=== PATIENT | male | born 1995 | race Caucasian/White ===

== ENCOUNTER 2021-04-18 15:37 | Emergency (ER) | payer OTHER ==
[2021-04-18] MEDS ORDERED: Sodium Chloride 0.9% 2.5 ML Syringe FLUSH PRN (16:07)
[2021-04-18] MEDS ORDERED: Sodium Chloride 0.9% 10 ML Syringe FLUSH PRN (16:07)
[2021-04-18] MEDS ORDERED: Sodium Chloride 0.9% 1,000 ML IV ONE (16:46)
[2021-04-18] MEDS ORDERED: cefTRIAXone 1 GM in Premix Bag 1 BAG IV ONE (16:54)
[2021-04-18 17:08] LABS: BLOOD UREA NITROGEN,BUN 9 mg/dL (7.0-18.0); CARBON DIOXIDE,CO2 30.1 mmol/L (21.0-32.0); CHLORIDE,CL 99 mmol/L (98-107); GLUCOSE RANDOM 88 mg/dL (74-106); LIPASE 63 U/L (73-393); POTASSIUM,K 4.3 mmol/L (3.5-5.1); SODIUM,NA 138 mmol/L (136-148)
[2021-04-18 17:27] LABS: CORONAVIRUS COVID-19 NAA NEGATIVE (NEGATIVE); INFLUENZA A NAA NEGATIVE (NEGATIVE); INFLUENZA B NAA NEGATIVE (NEGATIVE)
--- NOTE | 2021-04-18 17:44 | EDM.PDOC ---
ED HPI GENERAL MEDICAL PROBLEM - General Chief Complaint: Back Pain or Injury Stated Complaint: KIDNEY STONES Time Seen by Provider: 04/18/21 15:45 Source of Information: Reports: Patient History Limitations: Reports: No Limitations - History of Present Illness INITIAL COMMENTS - FREE TEXT/NARRATIVE: HISTORY AND PHYSICAL: History of present illness: Patient is a 25-year-old male who presents emergency room today with concern of bilateral flank pain x7 days. Patient states that he went to the walk-in clinic 2 days ago and had a urine sample and was told that he has blood in his urine. They also told him that his liver functions were mildly elevated. Patient states starting yesterday, he did start developing cold-like symptoms with stuffy/runny nose and cough. Patient states that primarily, his flank pain has been coming in waves and today is slightly worse on the left than the right. Patient states that he has been a monogamous relationship with his and has been for several years. Patient denies any new sexual partners or anal intercourse patient denies any penile drainage or testicular tenderness. Patient states he has not taken anything for her symptoms and denies any other symptoms or concerns. Patient denies fever, chills, chest pain, shortness of breath, or cough. Denies headache, neck stiff ness, change in vision, syncope, or near syncope. Denies nausea, vomiting, diarrhea, constipation, or dysuria. Has not noted any blood in urine or stool. Patient has been eating and drinking appropriately. Review of systems: As per history of present illness and below otherwise all systems reviewed and negative. Past medical history: As per history of present illness and as reviewed below otherwise noncontributory. Surgical history: As per history of present illness and as reviewed below otherwise noncontributory. Social history: See social history for further information Family history: As per history of present illness and as reviewed below otherwise noncontributory. Physical exam: General: Patient is alert, oriented, and in no acute distress. Patient sitting comfortably on exam table. Vitals stable and reviewed by me. HEENT: Atraumatic, normocephalic, pupils equal and reactive bilaterally, negative for conjunctival pallor or scleral icterus, mucous membranes moist, throat clear, neck supple, nontender, trachea midline. No drooling or trismus noted. No meningeal signs. No hot potato voice noted. Lungs: Clear to auscultation, breath sounds equal bilaterally, chest nontender. Heart: S1S2, regular rate and rhythm without overt murmur Abdomen: Soft, nondistended, nontender. Negative for masses or hepatosplenomegaly. Positive for costovertebral tenderness bilaterally;worse on left than right. Pelvis: Stable nontender. Genitourinary: Deferred. Rectal: Deferred. Skin: Intact, warm, dry. No lesions or rashes noted. Extremities: Atraumatic, negative for cords or calf pain. Neurovascular unremarkable. Neuro: Awake, alert, oriented. Cranial nerves II through XII unremarkable. Cerebellum unremarkable. Motor and sensory unremarkable throughout. Exam nonfocal. Medical Decision Making: Patient is an otherwise healthy 25-year-old male who presents emergency room today with concern of bilateral flank pain x7 days, with hematuria per walk in clinic 2 days ago, and now developing viral illness since yesterday. Arrival to the ED, patient is vitally stable and well-appearing on exam. Patient does have bilateral CVA tenderness, worse on the left than right. Remainder of exam is unremarkable. Will obtain IV access, basic lab work and urinalysis obtain abdominal pelvic CT scan. CBC does show a leukocytosis at 16.46. Mild thrombocytosis at 447. Otherwise mild derangements of CBC are unremarkable. CMPmild transaminitis with AST at 46 and ALT at 152: These are improving from lab work a few days ago. Otherwise, derangements of CMP are unremarkable. Specifically, BUN and creatinine within normal limits. Urinalysis does show 100 protein, positive nitrate with 5-8 red blood cells. Patient does have few bacteria. Given the positive nitrite with bacteria in urine along with patient's leukocytosis, will treat for urinary t ract infection. Will give a dose of Rocephin here in the emergency room waiting imaging completion. Influenza and Covid negative. Strep negative. Abdominal pelvic CT scan shows mild patchy and nodular opacities in the lung bases bilaterally are likely infectious or inflammatory. This is not typical of Covid. No hydronephrosis or obstructing urinary calculi. No other acute findings in the abdomen or pelvis. At this time, will treat with Levaqin to provide both respiratory and genitourinary coverage (ABX Discussed with Dr. Enamorado) Return precautions thoroughly discussed with patient. Discussed importance for follow-up with a primary care provider. Voices understanding and is agreeable to plan of care. Denies any further questions or concerns at this time. Diagnostics: CBC, CMP, UA, G&C, Lipase, Abd/Pelvic ct w/w/o cont Therapeutics: NS, Rocephin Prescription: Levaquin Impression: Urinary tract infection Pulmonary infiltrates, bilateral Transaminitis Plan: 1. Take medication as prescribed. You can take ibuprofen and Tylenol as directed for pain and discomfort. 2. Follow-up with her primary care provider as discussed. Return to the ED as needed as discussed. Definitive disposition and diagnosis as appropriate pending reevaluation and review of above. Left Mid back pain Pain Score (Numeric/FACES): 8 - Related Data Allergies Allergy/AdvReac Type Severity Reaction Status Date / Time No Known Allergies Allergy Verified 04/18/21 15:40 Home Meds: Home Meds Omeprazole 40 mg PO DAILY 04/18/21 [History] Past Medical History Gastrointestinal History: Reports: GERD - Infectious Disease History Infectious Disease History: Reports: Chicken Pox Social & Family History - Tobacco Use Tobacco Use Status *Q: Current Every Day Tobacco User Years of Tobacco use: 16 Packs/Tins Daily: 1 - Caffeine Use Caffeine Use: Reports: Coffee, Energy Drinks - Recreational Drug Use Recreational Drug Use: No ED ROS GENERAL - Review of Systems Review Of Systems: Comprehensive ROS is negative, except as noted in HPI. ED EXAM, GENERAL - Physical Exam Exam: See Below (see dictation) Course - Vital Signs Last Recorded V/S: Last Vital Signs Temp 97.1 F 04/18/21 15:40 Pulse 69 04/18/21 18:10 Resp 18 04/18/21 16:40 BP 120/73 04/18/21 18:10 Pulse Ox 96 04/18/21 18:10 - Orders/Labs/Meds Orders: Active Orders 24 hr Category Date Time Status CHLAMYDIA AND GONORRHEA BY TMA Stat Lab 04/18/21 18:28 Received CULTURE BLOOD [BC] Stat Lab 04/18/21 17:10 Received CULTURE BLOOD [BC] Stat Lab 04/18/21 17:16 Received CULTURE URINE [MREF] Stat Lab 04/18/21 15:55 Received Sodium Chloride 0.9% [Saline Flush] Med 04/18/21 16:07 Active 10 ml FLUSH ASDIRECTED PRN Sodium Chloride 0.9% [Saline Flush] Med 04/18/21 16:07 Active 2.5 ml FLUSH ASDIRECTED PRN Blood Culture x2 Reflex Set [OM.PC] Stat Oth 04/18/21 16:57 Ordered Saline Lock Insert [OM.PC] Stat Ot 04/18/21 16:07 Ordered Medication Orders Sodium Chloride (Sodium Chloride 0.9% 10 Ml Syringe) 10 ml FLUSH ASDIRECTED PRN PRN Reason: Keep Vein Open Last Admin: 04/18/21 16:36 Dose: 10 ml Documented by: ALLEN Sodium Chloride (Sodium Chloride 0.9% 2.5 Ml Syringe) 2.5 ml FLUSH ASDIRECTED PRN PRN Reason: Keep Vein Open Last Admin: 04/18/21 16:36 Dose: 2.5 ml Documented by: ALLEN Labs: Laboratory Tests 04/18/21 04/18/21 04/18/21 Range/Units 15:55 16:34 16:34 WBC 16.46 H (4.0-11.0) K/uL RBC 4.76 (4.50-5.90) M/uL Hgb 15.0 (13.0-17.0) g/dL Hct 44.2 (38.0-50.0) % MCV 92.9 (80.0-98.0) fL MCH 31.5 (27.0-32.0) pg MCHC 33.9 (31.0-37.0) g/dL RDW Std Deviation 49.3 (28.0-62.0) fl RDW Coeff of Gissel 14 (11.0-15.0) % Plt Count 447 H (150-400) K/uL MPV 9.60 (7.40-12.00) fL Neut % (Auto) 77.1 (48.0-80.0) % Lymph % (Auto) 12.9 L (16.0-40.0) % [place] % (Auto) 8.9 (0.0-15.0) % Eos % (Auto) 0.9 (0.0-7.0) % Baso % (Auto) 0.2 (0.0-1.5) % Neut # (Auto) 12.7 H (1.4-5.7) K/uL Lymph # (Auto) 2.1 (0.6-2.4) K/uL [place] # (Auto) 1.5 H (0.0-0.8) K/uL Eos # (Auto) 0.1 (0.0-0.7) K/uL Baso # (Auto) 0.0 (0.0-0.1) K/uL Nucleated RBC % 0.0 /100WBC Nucleated RBCs # 0 K/uL Sodium 138 (136-148) mmol/L Potassium 4.3 (3.5-5.1) mmol/L Chloride 99 (98-107) mmol/L Carbon Dioxide 30.1 (21.0-32.0) mmol/L BUN 9 (7.0-18.0) mg/dL Creatinine 1.1 (0.8-1.3) mg/dL Est Cr Clr Drug Dosing 100.87 mL/min Estimated GFR (MDRD) > 60.0 ml/min Glucose 88 (74-106) mg/dL Lactic Acid (0.4-2.0) mmol/L Calcium 9.0 (8.5-10.1) mg/dL Total Bilirubin 0.6 (0.2-1.0) mg/dL AST 46 H (15-37) IU/L ALT 152 H (14-63) IU/L Alkaline Phosphatase 52 (46-116) U/L Creatine Kinase (26-308) U/L Total Protein 8.1 (6.4-8.2) g/dL Albumin 3.7 (3.4-5.0) g/dL Globulin 4.4 H (2.6-4.0) g/dL Albumin/Globulin Ratio 0.8 L (0.9-1.6) Lipase 63 L (73-393) U/L Urine Color DARK YELLOW Urine Appearance CLEAR Urine pH 7.0 (5.0-8.0) Ur Specific [place] 1.015 (1.001-1.035) Urine Protein 100 H (NEGATIVE) mg/dL Urine Glucose (UA) NEGATIVE (NEGATIVE) mg/dL Urine Ketones TRACE H (NEGATIVE) mg/dL Urine Occult Blood MODERATE H (NEGATIVE) Urine Nitrite POSITIVE H (NEGATIVE) Urine Bilirubin SMALL H (NEGATIVE) Urine Urobilinogen 1.0 (<2.0) EU/dL Ur Leukocyte Esterase NEGATIVE (NEGATIVE) Urine RBC 5-8 (0-2/HPF) Urine WBC 0-2 (0-5/HPF) Ur Epithelial Cells OCCASIONAL (NONE-FEW) Urine Bacteria FEW (NEGATIVE) Urine Mucus HEAVY (NONE-MOD) Influenza Type A RNA (NEGATIVE) Influenza Type B RNA (NEGATIVE) SARS-CoV-2 RNA ([place]UNO) (NEGATIVE) Group A Strep (PCR) (NOT DETECT) 04/18/21 04/18/21 04/18/21 Range/Units 16:34 16:41 16:42 WBC (4.0-11.0) K/uL RBC (4.50-5.90) M/uL Hgb (13.0-17.0) g/dL Hct (38.0-50.0) % MCV (80.0-98.0) fL MCH (27.0-32.0) pg MCHC (31.0-37.0) g/dL RDW Std Deviation (28.0-62.0) fl RDW Coeff of Gissel (11.0-15.0) % Plt Count (150-400) K/uL MPV (7.40-12.00) fL Neut % (Auto) (48.0-80.0) % Lymph % (Auto) (16.0-40.0) % [place] % (Auto) (0.0-15.0) % Eos % (Auto) (0.0-7.0) % Baso % (Auto) (0.0-1.5) % Neut # (Auto) (1.4-5.7) K/uL Lymph # (Auto) (0.6-2.4) K/uL [place] # (Auto) (0.0-0.8) K/uL Eos # (Auto) (0.0-0.7) K/uL Baso # (Auto) (0.0-0.1) K/uL Nucleated RBC % /100WBC Nucleated RBCs # K/uL Sodium (136-148) mmol/L Potassium (3.5-5.1) mmol/L Chloride (98-107) mmol/L Carbon Dioxide (21.0-32.0) mmol/L BUN (7.0-18.0) mg/dL Creatinine (0.8-1.3) mg/dL Est Cr Clr Drug Dosing mL/min Estimated GFR (MDRD) ml/min Glucose (74-106) mg/dL Lactic Acid (0.4-2.0) mmol/L Calcium (8.5-10.1) mg/dL Total Bilirubin (0.2-1.0) mg/dL AST (15-37) IU/L ALT (14-63) IU/L Alkaline Phosphatase (46-116) U/L Creatine Kinase 159 (26-308) U/L Total Protein (6.4-8.2) g/dL Albumin (3.4-5.0) g/dL Globulin (2.6-4.0) g/dL Albumin/Globulin Ratio (0.9-1.6) Lipase (73-393) U/L Urine Color Urine Appearance Urine pH (5.0-8.0) Ur Specific [place] (1.001-1.035) Urine Protein (NEGATIVE) mg/dL Urine Glucose (UA) (NEGATIVE) mg/dL Urine Ketones (NEGATIVE) mg/dL Urine Occult Blood (NEGATIVE) Urine Nitrite (NEGATIVE) Urine Bilirubin (NEGATIVE) Urine Urobilinogen (<2.0) EU/dL Ur Leukocyte Esterase (NEGATIVE) Urine RBC (0-2/HPF) Urine WBC (0-5/HPF) Ur Epithelial Cells (NONE-FEW) Urine Bacteria (NEGATIVE) Urine Mucus (NONE-MOD) Influenza Type A RNA NEGATIVE (NEGATIVE) Influenza Type B RNA NEGATIVE (NEGATIVE) SARS-CoV-2 RNA ([place]UN[place]) NEGATIVE (NEGATIVE) Group A Strep (PCR) NOT DETECTED (NOT DETECT) 04/18/21 Range/Units 16:52 WBC (4.0-11.0) K/uL RBC (4.50-5.90) M/uL Hgb (13.0-17.0) g/dL Hct (38.0-50.0) % MCV (80.0-98.0) fL MCH (27.0-32.0) pg MCHC (31.0-37.0) g/dL RDW Std Deviation (28.0-62.0) fl RDW Coeff of Gissel (11.0-15.0) % Plt Count (150-400) K/uL MPV (7.40-12.00) fL Neut % (Auto) (48.0-80.0) % Lymph % (Auto) (16.0-40.0) % [place] % (Auto) (0.0-15.0) % Eos % (Auto) (0.0-7.0) % Baso % (Auto) (0.0-1.5) % Neut # (Auto) (1.4-5.7) K/uL Lymph # (Auto) (0.6-2.4) K/uL [place] # (Auto) (0.0-0.8) K/uL Eos # (Auto) (0.0-0.7) K/uL Baso # (Auto) (0.0-0.1) K/uL Nucleated RBC % /100WBC Nucleated RBCs # K/uL Sodium (136-148) mmol/L Potassium (3.5-5.1) mmol/L Chloride (98-107) mmol/L Carbon Dioxide (21.0-32.0) mmol/L BUN (7.0-18.0) mg/dL Creatinine (0.8-1.3) mg/dL Est Cr Clr Drug Dosing mL/min Estimated GFR (MDRD) ml/min Glucose (74-106) mg/dL Lactic Acid 0.7 (0.4-2.0) mmol/L Calcium (8.5-10.1) mg/dL Total Bilirubin (0.2-1.0) mg/dL AST (15-37) IU/L ALT (14-63) IU/L Alkaline Phosphatase (46-116) U/L Creatine Kinase (26-308) U/L Total Protein (6.4-8.2) g/dL Albumin (3.4-5.0) g/dL Globulin (2.6-4.0) g/dL Albumin/Globulin Ratio (0.9-1.6) Lipase (73-393) U/L Urine Color Urine Appearance Urine pH (5.0-8.0) Ur Specific [place] (1.001-1.035) Urine Protein (NEGATIVE) mg/dL Urine Glucose (UA) (NEGATIVE) mg/dL Urine Ketones (NEGATIVE) mg/dL Urine Occult Blood (NEGATIVE) Urine Nitrite (NEGATIVE) Urine Bilirubin (NEGATIVE) Urine Urobilinogen (<2.0) EU/dL Ur Leukocyte Esterase (NEGATIVE) Urine RBC (0-2/HPF) Urine WBC (0-5/HPF) Ur Epithelial Cells (NONE-FEW) Urine Bacteria (NEGATIVE) Urine Mucus (NONE-MOD) Influenza Type A RNA (NEGATIVE) Influenza Type B RNA (NEGATIVE) SARS-CoV-2 RNA ([place]UN[place]) (NEGATIVE) Group A Strep (PCR) (NOT DETECT) Meds: Medications Generic Name Dose Route Start Last Admin Trade Name Freq PRN Reason Stop Dose Admin Sodium Chloride 10 ml 04/18/21 16:07 04/18/21 16:36 Sodium Chloride 0.9% 10 Ml Syringe FLUSH 10 ml ASDIRECTED PRN Administration Keep Vein Open Sodium Chloride 2.5 ml 04/18/21 16:07 04/18/21 16:36 Sodium Chloride 0.9% 2.5 Ml Syringe FLUSH 2.5 ml ASDIRECTED PRN Administration Keep Vein Open Discontinued Medications Generic Name Dose Route Start Last Admin Trade Name Freq PRN Reason Stop Dose Admin Sodium Chloride 1,000 mls @ 999 mls/hr 04/18/21 16:46 04/18/21 17:32 Normal Saline IV 04/18/21 17:46 999 mls/hr STAT ONE Administration Ceftriaxone Sodium/Dextrose 1 50 mls @ 100 mls/hr 04/18/21 16:54 04/18/21 17:29 gm/ Premix IV 04/18/21 17:23 100 mls/hr ONETIME ONE Administration Iopamidol 100 ml 04/18/21 18:31 04/18/21 18:31 Iopamidol 755 Mg/Ml 500 Ml Multipack Bottle IVPUSH 04/18/21 18:32 100 ml ONETIME ONE Administration Departure - Departure Time of Disposition: 19:29 Disposition: Home, Self-Care 01 Clinical Impression: Urinary tract infection, Pulmonary infiltrate, Transaminitis - Discharge Information Instructions: Urinary Tract Infection, Adult, [id number] Referrals: PCP,None [Primary Care Provider] - Forms: ED Department Discharge Additional Instructions: The following information is given to patients seen in the emergency department who are being discharged to home. This information is to outline your options for follow-up care. We provide all patients seen in our emergency department with a follow-up referral. The need for follow-up, as well as the timing and circumstances, are variable depending upon the specifics of your emergency department visit. If you don't have a primary care physician on staff, we will provide you with a referral. We always advise you to contact your personal physician following an emergency department visit to inform them of the circumstance of the visit and for follow-up with them and/or the need for any referrals to a consulting specialist. The emergency department will also refer you to a specialist when appropriate. This referral assures that you have the opportunity for follow-up care with a specialist. All of these measure are taken in an effort to provide you with optimal care, which includes your follow-up. Under all circumstances we always encourage you to contact your private physician who remains a resource for coordinating your care. When calling for follow-up care, please make the office aware that this follow-up is from your recent emergency room visit. If for any reason you are refused follow-up, please contact the [facility] Department at and asked to speak to the emergency department charge nurse. [facility] [address] [place] [address] [place] [address] 1. Take medication as prescribed. You can take ibuprofen and Tylenol as directed for pain and discomfort. 2. Follow-up with her primary care provider as discussed. Return to the ED as needed as discussed. Sepsis Event Note (ED) - Evaluation Sepsis Screening Result: No Definite Risk - Focused Exam Vital Signs: Vital Signs Temp Pulse Resp BP Pulse Ox 04/18/21 18:10 69 120/73 96 04/18/21 17:11 89 133/80 95 04/18/21 16:40 80 18 133/87 94 L 04/18/21 15:40 97.1 F 88 16 155/87 H 95 - My Orders Last 24 Hours: My Active Orders 04/18/21 15:55 CULTURE URINE [MREF] Stat 04/18/21 16:07 Sodium Chloride 0.9% [Saline Flush] 10 ml FLUSH ASDIRECTED PRN Sodium Chloride 0.9% [Saline Flush] 2.5 ml FLUSH ASDIRECTED PRN Saline Lock Insert [OM.PC] Stat 04/18/21 16:57 Blood Culture x2 Reflex Set [OM.PC] Stat 04/18/21 17:10 CULTURE BLOOD [BC] Stat 04/18/21 17:16 CULTURE BLOOD [BC] Stat 04/18/21 18:28 CHLAMYDIA AND GONORRHEA BY TMA Stat - Assessment/Plan Last 24 Hours: My Active Orders 04/18/21 15:55 CULTURE URINE [MREF] Stat 04/18/21 16:07 Sodium Chloride 0.9% [Saline Flush] 10 ml FLUSH ASDIRECTED PRN Sodium Chloride 0.9% [Saline Flush] 2.5 ml FLUSH ASDIRECTED PRN Saline Lock Insert [OM.PC] Stat 04/18/21 16:57 Blood Culture x2 Reflex Set [OM.PC] Stat 04/18/21 17:10 CULTURE BLOOD [BC] Stat 04/18/21 17:16 CULTURE BLOOD [BC] Stat 04/18/21 18:28 CHLAMYDIA AND GONORRHEA BY TMA Stat
--- NOTE | 2021-04-18 18:22 | CT ---
INDICATION: Left-sided flank pain. TECHNIQUE: CT of the abdomen and pelvis performed without and with 100 cc Isovue 370 IV contrast. Coronal and sagittal reconstructions. COMPARISON: None. FINDINGS: The liver, gallbladder, pancreas, and adrenal glands are negative. Spleen size upper limits of normal. Splenule. No biliary dilation. Hepatic and portal veins are patent. Symmetric enhancement of the kidneys. No hydronephrosis or ureteral dilation. No obstructing urinary calculi. Minimal bladder wall thickening likely due to underdistention. The prostate gland is normal in appearance. No bowel dilation. Mild amount of stool. Negative appendix. No intraperitoneal free air or fluid. Tiny fat containing umbilical hernia. No lymphadenopathy. The bones are unremarkable. There are mild patchy and nodular opacities in the lung bases bilaterally which are likely infectious or inflammatory. Findings are not typical of COVID pneumonia. IMPRESSION: 1. Mild patchy and nodular opacities in the lung bases bilaterally are likely infectious or inflammatory. Findings are not typical of COVID pneumonia. 2. No hydronephrosis or obstructing urinary calculi. 3. No other acute findings in the abdomen or pelvis. Please note that all CT scans at this facility use dose modulation, iterative reconstruction, and/or weight-based dosing when appropriate to reduce radiation dose to as low as reasonably achievable. Dictated by Trudy Rivera MD @ 04/18/2021 6:20:03 PM (Electronically Signed)
[2021-04-18] MEDS ORDERED: Iopamidol 755 MG/ML 500 ML Multipack Bottle IVPUSH ONE (18:31)
--- NOTE | 2021-04-18 19:31 | CR ---
INDICATION: Cough. TECHNIQUE: Chest 1 view(s) COMPARISON: CT abdomen/pelvis earlier same day. FINDINGS: Cardiomediastinal silhouette and pulmonary vasculature are normal. No focal consolidation. Bibasilar opacities seen on prior CT are not well visualized on radiograph. No pleural effusion, no definite pneumothorax. No acute chest wall abnormality. IMPRESSION: Bibasilar opacities seen on prior CT are not well visualized on radiograph. No focal consolidation/infiltrate. Dictated by Tana Ohara MD @ 04/18/2021 7:28:51 PM (Electronically Signed)
[2021-04-20 12:08] LABS: C.TRACHOMATIS BY TMA Negative (Negative); N.GONORRHOEAE BY TMA Negative (Negative)
== END 2021-04-18 19:40 | disposition home or self-care (01) ==
LOC: MW.ED 15:37
DX: N39.0 Urinary tract infection, site not specified (principal); R74.01 Elevation of levels of liver transaminase levels; R91.8 Other nonspecific abnormal finding of lung field; K21.9 Gastro-esophageal reflux disease without esophagitis; D75.839 Thrombocytosis, unspecified; Z72.0 Tobacco use; Z79.899 Other long term (current) drug therapy; Z20.822 Contact with and (suspected) exposure to COVID-19
CPT/HCPCS: 0240U; 36415; 71045; 74178; 80053; 81001; 82550; 83605; 83690; 85025; 87040; 87086; 87491; 87591; 87651; 96374; 99284; J0696; J7030; Q9967; 99285

== ENCOUNTER 2021-05-10 05:59 | Emergency (ER) | payer OTHER ==
[2021-05-10] MEDS ORDERED: Acetaminophen 325 MG Tab PO ONE (06:23)
[2021-05-10 06:49] LABS: CORONAVIRUS COVID-19 NAA POSITIVE (NEGATIVE); INFLUENZA A NAA NEGATIVE (NEGATIVE); INFLUENZA B NAA NEGATIVE (NEGATIVE)
== END 2021-05-10 07:09 | disposition home or self-care (01) ==
LOC: MW.ED 05:59
DX: U07.1 COVID-19 (principal); K21.9 Gastro-esophageal reflux disease without esophagitis; Z79.899 Other long term (current) drug therapy
CPT/HCPCS: 0240U; 99283; A9270

== ENCOUNTER 2022-06-30 14:12 | Emergency (ER) | payer OTHER ==
[2022-06-30 16:58] LABS: POTASSIUM,K 3.9 mmol/L (3.5-5.1)
[2022-06-30 17:04] LABS: CORONAVIRUS COVID-19 NAA NEGATIVE (NEGATIVE); INFLUENZA A NAA NEGATIVE (NEGATIVE); INFLUENZA B NAA NEGATIVE (NEGATIVE)
== END 2022-06-30 17:29 | disposition home or self-care (01) ==
LOC: MW.ED 14:12
DX: R07.2 Precordial pain (principal); Z72.0 Tobacco use; Z20.822 Contact with and (suspected) exposure to COVID-19
CPT/HCPCS: 0240U; 36415; 71045; 80053; 84443; 84484; 85025; 85379; 93005; 99285; 93010; 99283